=== PATIENT | female | born 1980 | race Caucasian/White ===

== ENCOUNTER 2018-06-17 21:24 | Emergency (ER) | payer OTHER, SELFPAY ==
--- NOTE | 2018-06-17 21:40 | DI.RAD.S_ITS ---
PROCEDURE: XR FINGER LT MIN 2V INDICATIONS: left distal middle finger injury TECHNIQUE: AP hand, 2 views of the third finger(s) acquired. COMPARISON: None. FINDINGS: Bones: No fractures or dislocations. No suspicious bony lesions. Soft tissues: No suspicious soft tissue calcifications. IMPRESSION: No gross acute pedicular fracture or dislocation. Dictated by: Michael Martin M.D. on 06/18/2018 at 8:22 Approved by: Michael Martin M.D. on 06/18/2018 at 8:23
--- NOTE | 2018-06-17 21:41 | ED.WOUNDLAC ---
HPI - Wound/Laceration General Chief Complaint: Wound/Laceration Stated Complaint: LACERATION OF MIDDLE FINGER LEFT HAND Time Seen by Provider: 06/17/18 21:35 Source: patient Mode of arrival: ambulatory Limitations: no limitations History of Present Illness HPI narrative: Patient is a 37-year-old female here for evaluation of injury to her left middle finger. She states it occurred just prior to arrival. She states she got it caught in a vacuum apparatus cleaner at home. Has pain at the tip of her finger. Related Data Previous Rx's Medication Instructions Recorded bupropion HCl [Wellbutrin XL] 300 mg PO QDAY #90 tab 11/11/17 lisdexamfetamine 60 mg capsule 60 mg PO DAILY #30 cap 03/03/18 lisdexamfetamine 60 mg capsule 60 mg PO DAILY #30 cap 03/06/18 lisdexamfetamine 60 mg capsule 60 mg PO DAILY #30 cap 03/06/18 Allergies Allergy/AdvReac Type Severity Reaction Status Date / Time No Known Allergies Allergy Uncoded 03/03/18 10:16 Review of Systems Musculoskeletal Comments: Left middle finger pain Integumentary/Breasts Comments: bleeding from the tip of the left middle finger Neurologic Comments: no numbness or tingling left middle finger [facility] Medical History Ankle pain (Chronic) Depression (Chronic 2010) Foot pain (Chronic) History of heavy periods (Chronic) Chlamydia (Resolved 2013) HPV (human papilloma virus) infection (Resolved 2013) Surgical History Anesthesia (Resolved) History of gynecologic surgery (Resolved 05/2001) Status post cholecystectomy (Resolved 10/24/06) Family History Grandfather Cancer Diabetes mellitus Brain tumor Mother Age: 71 Diabetes mellitus Grandfather Stroke Diabetes mellitus Pneumonia Brother Liver failure Kidney failure Alcoholism Father No problems noted. Grandmother MVA (motor vehicle accident) Grandmother Alzheimer's disease Other Uterine cancer Social History Smoking Status: Never smoker Exam Initial Vital Signs Initial Vital Signs: Vital Signs Temperature 98.7 F 06/17/18 21:43 Pulse Rate 89 06/17/18 21:43 Respiratory Rate 14 06/17/18 21:43 Blood Pressure 131/78 06/17/18 21:43 Pulse Oximetry 94 06/17/18 21:43 Const General: cooperative, healthy appearing, comfortable, well developed, well groomed and No acute distress Orientation: alert, awake and oriented x3 HENMT Head: normal to inspection and normocephalic Resp Effort & Inspection: normal respiratory effort Cardio Pulses: radial pulses present on the left Skin Other: abrasion to the dorsal aspect of the left middle finger over the PIP joint. Neuro Other: Sensation intact to light touch left middle finger distal Extrem Other: pain with flexion extension of the left he IP joint. Left PIP and MCP joint unremarkable. Psych Appearance: grossly normal and well kempt Course Orders Ordered: ED Orders 06/17/18 21:40 XR finger LT min 2V Stat Vital Signs - 8 hr 06/17/18 21:43 Temperature 98.7 F Pulse Rate 89 Respiratory Rate 14 Blood Pressure 131/78 Pulse Oximetry 94 MDM - Wound/Laceration Imaging Data x-ray finger: Attestation: I personally reviewed and interpreted this imaging study as follows: My impression: no fracture, no dislocation MDM Narrative Medical decision making narrative: no fractures noted on the x-ray. Patient does have abrasions over the tips of the finger. It is pretty swollen. No indication for suturing. Was placed in a aluminum splint for comfort. Patient was given care instructions. She was given return precautions. She expressed understanding and agreement with plan. Discharge Plan Departure Patient Disposition: Home Clinical Impression: Finger injury, Abrasion Instructions: How To Perform RICE (Rest, Ice, Compress, Elevate) Activity Restrictions/Additional Instructions: you can use the splint as needed for comfort. You can remove it to shower and to wash her hands. You can wash her hand like normal using soap and water. I would recommend icing your finger. Return to the emergency department for any new or worsening symptoms Prescriptions: No Action bupropion HCl [Wellbutrin XL] 300 MG tablet extended release 24 hr 300 mg PO QDAY Qty: 90 RF: 1 lisdexamfetamine [Vyvanse] 60 mg capsule 60 mg PO DAILY Qty: 30 RF: 0 lisdexamfetamine [Vyvanse] 60 mg capsule 60 mg PO DAILY Qty: 30 RF: 0 lisdexamfetamine 60 mg capsule 60 mg PO DAILY Qty: 30 RF: 0
[2018-06-17 21:43] VITALS: BP 131/78; PULSE 89; RESP 14; TEMP 37.1; O2SAT 94
[2018-06-17 22:55] VITALS: BP 130/72; PULSE 89; RESP 12; TEMP 36.8; O2SAT 98
--- NOTE | 2018-06-17 22:56 | PC.NURSE ---
Xeroform and finger splint applied prior to D/C.
== END 2018-06-17 22:55 | disposition home or self-care (01) ==
PROVIDERS: Emergency Provider Emergency Medicine; Family Provider Family Medicine; PCP Family Medicine
DX: S60.413A Abrasion of left middle finger, initial encounter (principal); W23.0XXA Caught, crushed, jammed, or pinched between moving objects, initial encounter
CPT/HCPCS: 73140; 99283

== ENCOUNTER → 2019-08-17 09:38 | Outpatient (CLI) | payer OTHER, MEDICAID, SELFPAY ==
[2019-08-17 10:32] LABS: Add Manual Diff / Slide Review NO; Basophils Absolute Auto 100 /uL (0-100); Basophils Percent Auto 0.7 % (0-2); Eosinophils Absolute Auto 100 /uL (0-450); Eosinophils Percent Auto 1.1 % (2-4); Hematocrit 33.4 % (36-46); Hemoglobin 10.5 g/dL (12.0-16.0); Lymphocytes Absolute Auto 1300 /uL (1100-4500); Lymphocytes Percent Auto 19.1 % (25-40); Mean Corpuscular HGB Conc 31.3 % (30-36); Mean Corpuscular Hemoglobin 23.2 PG (26-34); Mean Corpuscular Volume 73.9 fL (80-100); Monocytes Absolute Auto 600 /uL (0-900); Monocytes Percent Auto 8.3 % (3-14); Neutrophils Absolute Auto 5000 /uL (1500-7000); Neutrophils Percent Auto 70.8 % (50-75); Platelet Count 236 X10^3/uL (150-400); Red Blood Cell Count 4.52 X10^6/uL (4.0-5.2); Red Cell Distribution Width 17.2 % (11.6-14.8)
[2019-08-17 10:49] LABS: Alanine Aminotransferase 12 IU/L (<35); Albumin Globulin Ratio 1.8 (1.0-2.8); Alkaline Phosphatase 46 U/L (38-126); Aspartate Aminotransferase 19 IU/L (14-36); BUN Creatinine Ratio 18.6 (6-22); Bilirubin Total 0.4 mg/dL (0.2-1.3); Blood Urea Nitrogen 13 mg/dL (7-17); Calcium 9.2 mg/dL (8.4-10.2); Carbon Dioxide 27 mmol/L (22-32); Chloride 106 mmol/L (98-107); Cholesterol 190 mg/dL (140-199); Estimated Glomerular Filt Rate > 60.0 mL/min (>60); Globulin 2.2 g/dL (1.7-4.1); Glucose 95 mg/dL (70-100); HDL Cholesterol 79 mg/dL (40-60); HEMOLYSIS < 15 (0-50); LDL Cholesterol Calculated 94 mg/dL (<100); Potassium 4.4 mmol/L (3.4-5.1); Sodium 139 mmol/L (137-145); Total Protein 6.2 g/dL (6.3-8.2); Triglycerides 84 mg/dL (35-150)
[2019-08-17 11:16] LABS: Thyroid Stimulating Hormone 0.78 uIU/mL (0.47-4.68)
[2019-08-17 15:37] LABS: HEMOLYSIS < 15 (0-50); Iron 31 ug/dL (37-170)
[2019-08-17 15:48] LABS: Percent Iron Saturation 7 % (15-50); Total Iron Binding Capacity 414 ug/dL (265-497); Transferrin 358 mg/dL (206-381)
[2019-08-17 16:14] LABS: Ferritin 4.3 ng/mL (6.27-137)
== END ==
PROVIDERS: PCP Family Medicine; Visit Provider Family Medicine
DX: E78.5 Hyperlipidemia, unspecified (principal); R53.83 Other fatigue; D64.9 Anemia, unspecified; Z82.49 Family history of ischemic heart disease and other diseases of the circulatory system; N92.0 Excessive and frequent menstruation with regular cycle
CPT/HCPCS: 36415; 80053; 80061; 82728; 83540; 83550; 84443; 85025

== ENCOUNTER → 2019-10-02 16:37 | Outpatient (CLI) | payer OTHER, MEDICAID, SELFPAY ==
[2019-10-02 17:33] LABS: Add Manual Diff / Slide Review NO; Basophils Absolute Auto 0 /uL (0-100); Basophils Percent Auto 0.5 % (0-2); Eosinophils Absolute Auto 100 /uL (0-450); Eosinophils Percent Auto 1.4 % (2-4); Hemoglobin 11.8 g/dL (12.0-16.0); Lymphocytes Absolute Auto 2000 /uL (1100-4500); Lymphocytes Percent Auto 27.3 % (25-40); Mean Corpuscular HGB Conc 31.9 % (30-36); Mean Corpuscular Hemoglobin 25.5 PG (26-34); Monocytes Absolute Auto 500 /uL (0-900); Neutrophils Absolute Auto 4700 /uL (1500-7000); Neutrophils Percent Auto 63.8 % (50-75); Platelet Count 201 X10^3/uL (150-400); Red Blood Cell Count 4.63 X10^6/uL (4.0-5.2); Red Cell Distribution Width 21.7 % (11.6-14.8); White Blood Cell Count 7.3 X10^3/uL (4.5-11.0)
[2019-10-02 18:02] LABS: HEMOLYSIS < 15 (0-50); Iron 202 ug/dL (37-170)
[2019-10-02 18:12] LABS: Percent Iron Saturation 56 % (15-50); Total Iron Binding Capacity 358 ug/dL (265-497); Transferrin 311 mg/dL (206-381)
[2019-10-02 18:33] LABS: Ferritin 8 ng/mL (6-137)
[2019-10-02 19:31] LABS: Anisocytosis 1+; Poikilocytosis 1+
== END ==
PROVIDERS: PCP Family Medicine; Referring Provider Family Medicine; Visit Provider Family Medicine
DX: D50.9 Iron deficiency anemia, unspecified (principal); N92.0 Excessive and frequent menstruation with regular cycle
CPT/HCPCS: 36415; 82728; 83540; 83550; 85025

== ENCOUNTER → 2020-01-04 09:17 | Outpatient (CLI) | payer OTHER, MEDICAID, SELFPAY ==
[2020-01-04 10:04] LABS: Add Manual Diff / Slide Review NO; Basophils Absolute Auto 0 /uL (0-100); Basophils Percent Auto 0.7 % (0-2); Eosinophils Absolute Auto 100 /uL (0-450); Eosinophils Percent Auto 1.3 % (2-4); Hematocrit 36.6 % (36-46); Hemoglobin 12.1 g/dL (12.0-16.0); Lymphocytes Absolute Auto 1600 /uL (1100-4500); Lymphocytes Percent Auto 28.2 % (25-40); Mean Corpuscular Hemoglobin 26.9 PG (26-34); Mean Corpuscular Volume 81.5 fL (80-100); Monocytes Absolute Auto 500 /uL (0-900); Monocytes Percent Auto 9.2 % (3-14); Neutrophils Absolute Auto 3400 /uL (1500-7000); Neutrophils Percent Auto 60.6 % (50-75); Platelet Count 224 X10^3/uL (150-400); Red Blood Cell Count 4.49 X10^6/uL (4.0-5.2); Red Cell Distribution Width 15.3 % (11.6-14.8); White Blood Cell Count 5.7 X10^3/uL (4.5-11.0)
[2020-01-04 10:38] LABS: HEMOLYSIS < 15 (0-50); Iron 51 ug/dL (37-170)
[2020-01-04 10:49] LABS: Percent Iron Saturation 13 % (15-50); Total Iron Binding Capacity 399 ug/dL (265-497); Transferrin 328 mg/dL (206-381)
[2020-01-04 11:13] LABS: Ferritin 5 ng/mL (6-137)
== END ==
PROVIDERS: PCP Family Medicine; Referring Provider Family Medicine; Visit Provider Family Medicine
DX: D50.0 Iron deficiency anemia secondary to blood loss (chronic) (principal)
CPT/HCPCS: 36415; 82728; 83540; 83550; 85025

== ENCOUNTER → 2020-01-14 09:38 | Outpatient (CLI) | payer OTHER, MEDICAID, SELFPAY ==
--- NOTE | 2020-01-14 09:40 | DI.US.S_ITS ---
PROCEDURE: US PELVIC COMPLETE INDICATIONS: HEAVY PERIODS TECHNIQUE: Real-time scanning was performed of the pelvic organs, with image documentation. Additional endovaginal scanning was necessary due to incomplete visualization of the adnexal and endometrial structures by transabdominal scanning. COMPARISON: [facility], , PELVIC COMPLETE, 02/26/2015, 13:19. FINDINGS: Transabdominal scanning: Limited scanning through the kidneys shows no hydronephrosis. No pathologic free abdominal or pelvic fluid. Endovaginal scanning: Uterus: Uterus is normal in size at 7.8 x 6.4 x 8.2 cm. The endometrium measures 1.3 mm in combined thickness. Ovaries: 19 mm dominant right follicular cyst; otherwise normal ovaries measuring 2.9 x 1.8 x 2.3 cm on the right and 2.8 x 1.7 x 2.2 cm and the left. No adnexal masses seen. IMPRESSION: No source for menorrhagia identified. Dictated by: Chan SCHMID Interpreted: Michael Martin MD on 01/14/2020 at 10:43 Approved by: Michael Martin M.D. on 01/14/2020 at 11:56
== END ==
PROVIDERS: PCP Family Medicine; Referring Provider Family Medicine; Visit Provider Family Medicine
DX: D50.0 Iron deficiency anemia secondary to blood loss (chronic) (principal); N92.0 Excessive and frequent menstruation with regular cycle; N83.01 Follicular cyst of right ovary
CPT/HCPCS: 76830; 76856

== ENCOUNTER 2021-05-25 14:11 | Emergency (ER) | payer OTHER, MEDICAID, SELFPAY ==
[2021-05-25 14:18] VITALS: BP 139/70; PULSE 90; RESP 16; TEMP 36.6; O2SAT 99; BMI 26.6
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
[2021-05-25] MEDS: CYCLOBENZAPRINE 10 MG TABLET PO (15:30)
[2021-05-25] MEDS: KETOROLAC 30 MG/ML VIAL IM (15:30)
[2021-05-25] MEDS: LIDOCAINE PATCH 1 EACH ADH..PATCH TOP (15:30)
--- NOTE | 2021-05-25 16:32 | DI.MRI.S_ITS ---
PROCEDURE: MR LUMBAR SPINE WO CON INDICATIONS: Lower back pain TECHNIQUE: Noncontrast sagittal T1 spin echo and T2 fast echo, sagittal STIR, axial T1 and T2 fast spin echo through the lumbar spine. In cases with scoliosis, additional coronal T2 fast spin echo may be performed. COMPARISON: None. FINDINGS: Image quality: Excellent. Alignment and Curvature: There is normal bony alignment. Bone Marrow: Marrow is of normal overall signal. No acute vertebral body compression fractures. Spinal Cord: Conus medullaris terminates at the L1 level. Visualized cord demonstrates normal signal and size. Paraspinous Soft Tissues: No paravertebral masses. T12-L1: Normal appearance. L1-L2: Normal appearance. L2-L3: Normal appearance. L3-L4: Normal appearance. L4-L5: Normal appearance. L5-S1: Large left subarticular focal protrusion/extrusion with inferior migration fills the left lateral recess displacing the descending S1 nerve root. No central or foraminal stenosis. IMPRESSION: 1. Large subarticular left L5-S1 disc protrusion/2 screws in with inferior migration effaces the left lateral recess and displaces the descending S1 nerve root Approved by: Garrick Stafford M.D. on 05/25/2021 at 17:48
[2021-05-25] MEDS: MORPHINE 4 MG/ML INJ IM (16:46)
[2021-05-25] MEDS: ONDANSETRON 4 MG ODT PO (16:46)
[2021-05-25 16:56] VITALS: O2SAT 98
--- NOTE | 2021-05-25 16:56 | PC.NURSE ---
Pt states she has h/o issues with L4L5. Given first round of meds per MAR without relief. pt resting prone in position of comfort. states unable to turn on back. JAGDEEP Villarreal made aware. MRI ordered and checklist completed. given IM morphine 4mg, ODT zofran, and crackers to eat. Pt resting until MRI at 1800. Mother at bedside.
[2021-05-25 16:57] VITALS: BP 101/67; PULSE 94; O2SAT 98
[2021-05-25 17:00] VITALS: PULSE 82; RESP 16; O2SAT 97
[2021-05-25 17:30] VITALS: PULSE 76; O2SAT 100
--- NOTE | 2021-05-25 18:20 | PC.NURSE ---
Pt returned from MRI. lying on back with L leg slightly elevated on pillow. states sleepy and appears more comfortable. states her pain has decreased and quite tolerable.
== END 2021-05-25 19:28 | disposition home or self-care (01) ==
PROVIDERS: Emergency Provider Student in an Organized Health Care Education/Training Program; PCP Family Medicine
DX: M54.42 Lumbago with sciatica, left side (principal)
CPT/HCPCS: 72148; 96372; 99283; 99284; J1885; J2270

== ENCOUNTER → 2021-06-08 08:35 | Outpatient (CLI) | payer OTHER, MEDICAID, SELFPAY ==
[2021-06-08 16:35] LABS: COVID19 -Nasal RAPID Negative (Negative)
== END ==
PROVIDERS: PCP Family Medicine; Visit Provider Physical Medicine & Rehabilitation
DX: Z20.822 Contact with and (suspected) exposure to COVID-19 (principal)
CPT/HCPCS: 87635; C9803

== ENCOUNTER 2021-06-09 14:15 | Outpatient (CLI) | payer OTHER, MEDICAID, SELFPAY ==
[2021-06-09] VITALS (8 sets, daily range): BP systolic 113–137; BP diastolic 77–82; PULSE 69–93; RESP 9–20; TEMP 37.4; O2SAT 98–100
--- NOTE | 2021-06-09 14:17 | DI.RAD.S_ITS ---
PROCEDURE: PAIN L INTERLAMINAR/CAUDAL INJ INDICATIONS: SPONDYLOSIS COMPARISON: None. FINDINGS: Fluoroscopic spot filming was performed to verify placement of spinal needles at the left L5-S1 interlaminar level(s), as labeled on the films. Appropriate location(s) of the needle tip(s) was confirmed by injection of iodinated contrast. IMPRESSION: Access needle in the left L5-S1 interlaminar space. Dictated by: Dorothy Pearl MD, PhD on 06/09/2021 at 15:32 Approved by: Dorothy Pearl MD, PhD on 06/09/2021 at 15:33
[2021-06-09] MEDS: MIDAZOLAM 5 MG/5 ML VIAL IV (15:04)
[2021-06-09] MEDS: fentaNYL 100 MCG/2 ML INJ 50 MCG IV (15:04)
[2021-06-09] MEDS: BUPIVACAINE 0.25% (PF) VIAL 2 ML INJ (15:11)
[2021-06-09] MEDS: IOPAMIDOL 15 ML VIAL 3 ML INJ (15:11)
[2021-06-09] MEDS: DEXAMETHASONE 10 MG/ML VIAL 20 MG INJ (15:12)
[2021-06-09] MEDS: BETAMETHASONE 30 MG/5 ML MDV 12 MG INJ (15:12)
--- NOTE | 2021-06-09 15:18 | P.PCN_ITS ---
Date/Time/Diagnoses Date of procedure: 06/09/21 Time of procedure: 15:19 Pre-procedure diagnosis: 1. HNP WITH RADICULAR FEATURES, 2. MULTILEVEL CENTRAL STENOSIS, Post-procedure diagnosis: same Procedure Notes Procedure: 1. FLUOROSCOPICALLY GUIDED CONTRAST CONTROLLED INTERLAMINAR EPIDURAL STEROID INJECTION - L5/S1 Indications: Diane is referred by Dr. Avery for treatment of Bilateral Foraminal Stenosis L>R LE symptoms. Physician: Mohan Tavarez Total Fluoroscopy time (seconds): 6 Total sedation minutes: 9 Complications: none Procedure in detail & Post-procedure care: FINDINGS Multilevel Central Spinal Stenosis with Nerve Root Compression DESCRIPTION OF PROCEDURE Fluoroscopically guided, contrast-controlled L5/S1 translaminar epidural steroid injection. Following review of allergy and review of potential side effects and complications, including, but not necessarily limited to, infection, allergic reaction, local tissue breakdown, temporary as well as permanent nerve injury, paralysis, stroke and possible , the patient indicated that the patient understood and agreed to proceed. An informed consent document was signed by the patient, witnessed by a nurse, and placed in the patient's chart. Additionally, other treatment options including modalities, medications, and physical therapy were reviewed with the patient. After review of previous anaesthesic history and IV conscious sedation the patient was deemed safe to proceed with today?s procedure with IV conscious sedation as ASA class II designation. Safety time-out was performed to confirm p atient ID, procedure to be performed and site of procedure. IV sedation was accomplished with a combination of 2mg of Versed and 50mcg of Fentanyl administered by the RN after DO order, titrated to patient comfort during the course of the procedure while the patient remained responsive to all verbal commands. In the prone position, following sterile prep and drape of the lumbar region, the L5/S1 translaminar space was identified fluoroscopically. The skin was anesthetized via a 25-gauge, 1.5-inch needle with 1% lidocaine solution. At this point, a 22-gauge short bevel spinal needle was atraumatically introduced and advanced under fluoroscopic guidance into the region of the L5/S1 translaminar space. Depth was confirmed on lateral view. Radiological data, including multiple fluoroscopic views of the lumbar spine, reveal a spinal needle at the L5/S1 translaminar space. Lateral views then show placement of the needle in the epidural space. Subsequent views show contrast material flowing superiorly and inferiorly in the epidural space. No vascular or intrathecal uptake is observed. At this point, using loss of resistance technique with saline and air, the epidural space was entered. This was confirmed following negative aspiration with injection of approximately 1.5cc of Isovue 200, showing excellent epidural flow without vascular or intrathecal uptake. At this point, 1 cc of 1% lidocaine solution combined with 4cc or 20mg of dexamethasone and 12mg of betamethasone was injected without incident. The patent tolerated the procedure without signs of symptoms of complications prior to transfer to the recovery area for further monitoring. The patient was then transferred to the recovery area where they were observed for an appropriate period of time after the injection. The patient reported a VAS score of 6 prior to the procedure and a post-procedure VAS of 0. POST OP INSTRUCTIONS The patient was provided a Pain Log to continue to record their response to the target-specific procedure prior to follow-up visit with their referring physician. Additionally, specific post-injection care instructions and a contact number to our office were provided if concerns arise regarding possible complications associated with the procedure are suspected.
== END 2021-06-09 15:40 | disposition home or self-care (01) ==
LOC: RAD 14:16
PROVIDERS: PCP Family Medicine; Referring Provider Physical Medicine & Rehabilitation; Visit Provider Physical Medicine & Rehabilitation
DX: M51.17 Intervertebral disc disorders with radiculopathy, lumbosacral region (principal); M48.07 Spinal stenosis, lumbosacral region
CPT/HCPCS: 62323; J0702; J1100; J2250; J3010

== ENCOUNTER → 2021-06-29 13:33 | Outpatient (CLI) | payer OTHER, MEDICAID, SELFPAY ==
[2021-06-29 16:38] LABS: COVID19 -Nasal RAPID Negative (Negative)
== END ==
PROVIDERS: PCP Family Medicine; Referring Provider Physical Medicine & Rehabilitation; Visit Provider Physical Medicine & Rehabilitation
DX: Z20.822 Contact with and (suspected) exposure to COVID-19 (principal)
CPT/HCPCS: 87635; C9803

== ENCOUNTER 2021-06-30 14:35 | Outpatient (CLI) | payer OTHER, MEDICAID, SELFPAY ==
[2021-06-30] VITALS (7 sets, daily range): BP systolic 105–131; BP diastolic 60–94; PULSE 63–82; RESP 8–22; TEMP 36.8; O2SAT 97–100
--- NOTE | 2021-06-30 14:36 | DI.RAD.S_ITS ---
PROCEDURE: PAIN L/S TRANSFORAMINAL INJECT INDICATIONS: SPONDYLOSIS COMPARISON: None. FINDINGS: Fluoroscopic spot filming was performed to verify placement of spinal needles at the left L5 nerve root level(s), as labeled on the films. Appropriate location(s) of the needle tip(s) was confirmed by injection of iodinated contrast. IMPRESSION: Imaging utilized for fluoroscopic guided lumbar nerve root block. Dictated by: Brandon Harris M.D. on 06/30/2021 at 17:02 Approved by: Brandon Harris M.D. on 06/30/2021 at 17:03
[2021-06-30] MEDS: fentaNYL 100 MCG/2 ML INJ 50 MCG IV (15:21)
[2021-06-30] MEDS: MIDAZOLAM 5 MG/5 ML VIAL IV (15:21)
[2021-06-30] MEDS: BUPIVACAINE 0.25% (PF) VIAL 30 ML (15:26)
[2021-06-30] MEDS: IOPAMIDOL 15 ML VIAL 3 ML INJ (15:26)
[2021-06-30] MEDS: DEXAMETHASONE 10 MG/ML VIAL 20 MG INJ (15:27)
[2021-06-30] MEDS: methylPREDNISolone acetate 80 MG/ML VIAL INJ (15:27)
--- NOTE | 2021-06-30 15:39 | P.PCN_ITS ---
Date/Time/Diagnoses Date of procedure: 06/30/21 Time of procedure: 15:39 Pre-procedure diagnosis: 1. FORAMINAL STENOSIS WITH LE SYMPTOMS Post-procedure diagnosis: same Procedure Notes Procedure: 1. FLUOROSCOPICALLY GUIDED CONTRAST CONTROLLED TRANSFORAMINAL EPIDURAL STEROID INJECTION - Left L5/S1 Indications: Diane is referred by Dr. Avery for treatment of HNP with Left LE Symptoms Physician: Mohan Tavarez Total Fluoroscopy time (seconds): 16 Total sedation minutes: 11 Complications: none Procedure in detail & Post-procedure care: FINDINGS Foraminal Nerve Root Compression secondary to disc disease and facet hypertrophy DESCRIPTION OF PROCEDURE Following review of allergy and review of potential side effects and complications, including, but not necessarily limited to, infection, allergic reaction, local tissue breakdown, stroke, temporary or permanent nerve injury, paralysis, and possible , the patient indicated that the patient understood and agreed to proceed. An informed consent document was signed by the patient, witnessed by a nurse, and placed in the patient's chart. Additionally, other treatment options including medications, modalities, and physical therapy were reviewed with the patient. After review of previous anaesthesic history and IV conscious sedation the patient was deemed safe to proceed with today?s procedure with IV conscious chilo tion as ASA class II designation. Safety time-out was performed to confirm patient ID, procedure to be performed and site of procedure. IV sedation was accomplished with a combination of 3mg of Versed and 50mcg of Fentanyl was administered by the RN after DO order, titrated to patient comfort during the course of the procedure while the patient remained responsive to all verbal commands In the prone position following sterile prep and drape of the lumbar region, the left L5/S1 posterior neuroforamen was identified fluoroscopically. The skin was anesthetized via a 25-gauge 1.5-inch needle with 1% lidocaine solution. At this point, a 25-gauge 3.5-inch spinal needle was atraumatically introduced and advanced under fluoroscopic guidance through the posterior left L5/S1 neuroforamen to approximately the anterior aspect of the canal. Depth was confirmed on lateral view. Following negative aspiration, injection of approximately 1.5cc of Isovue 200 under live fluoroscopy in the AP view confirmed excellent flow along the nerve root, into the epidural space without vascular or intrathecal uptake observed. Radiological data, including multiple fluoroscopic views of the lumbosacral spine, reveal a spinal needle at the left L5/S1 posterior neuroforamen. Subsequent views show flow of contrast material flowing superiorly and inferiorly along the nerve root confirming epidural flow. Subsequently, a test dose of 1.5cc of 1% lidocaine solution was administered and patient was observed for two minutes for signs or symptoms of complications, including abdominal pain, shortness of breath, bilateral upper or lower extremity weakness, nausea and vomiting, prior to steroid injection. At this point, a total of 3cc or 20mg of dexamethasone and 80mg of depomedrol was injected without incident. The procedure tolerated the procedure well without signs or symptoms of complications prior to transfer to the recovery area continued monitoring without incident. The patient was then transferred to the recovery area where they were observed for an appropriate time after the injection. The patient reported a VAS score of 7 prior to the procedure and a post-procedure VAS of 0. POST OP INSTRUCTIONS The patient was provided a Pain Log to continue to record their response to the target-specific procedure prior to follow-up visit with their referring physician. Additionally, specific post-injection care instructions and a contact number to our office were provided if concerns arise regarding possible complications associated with the procedure are suspected.
== END 2021-06-30 16:04 | disposition home or self-care (01) ==
PROVIDERS: PCP Family Medicine; Referring Provider Physical Medicine & Rehabilitation; Visit Provider Physical Medicine & Rehabilitation
DX: M48.07 Spinal stenosis, lumbosacral region (principal); M51.17 Intervertebral disc disorders with radiculopathy, lumbosacral region
CPT/HCPCS: 64483; 99152; J1040; J1100; J2250; J3010

== ENCOUNTER → 2021-12-14 09:41 | Outpatient (CLI) | payer OTHER, MEDICAID, SELFPAY ==
[2021-12-14 12:00] LABS: COVID19 -Nasal RAPID Negative (Negative)
== END ==
PROVIDERS: PCP Family Medicine; Visit Provider Physical Medicine & Rehabilitation
DX: Z20.822 Contact with and (suspected) exposure to COVID-19 (principal)
CPT/HCPCS: 87635; C9803

== ENCOUNTER 2021-12-15 12:24 | Outpatient (CLI) | payer OTHER, MEDICAID, SELFPAY ==
[2021-12-15] VITALS (9 sets, daily range): BP systolic 114–140; BP diastolic 60–90; PULSE 73–101; RESP 10–20; TEMP 36.6; O2SAT 99–100
--- NOTE | 2021-12-15 12:25 | DI.RAD.S_ITS ---
PROCEDURE: PAIN L/S TRANSFORAMINAL INJECT INDICATIONS: SPONDYLOSIS COMPARISON: [facility], , PAIN L/S TRANSFORAMINAL INJECT, 06/30/2021, 16:22. FINDINGS: Fluoroscopic spot filming was performed to verify placement of a spinal needle at the L5-S1 level, as labeled on the films. Appropriate location of the needle tip was confirmed by injection of iodinated contrast. IMPRESSION: No significant intraprocedural abnormality. Dictated by: Diego Jasso M.D. on 12/15/2021 at 16:21 Approved by: Diego Jasso M.D. on 12/15/2021 at 16:21
[2021-12-15] MEDS: MIDAZOLAM 2 MG/2 ML VIAL IV (13:21)
[2021-12-15] MEDS: DEXAMETHASONE 10 MG/ML VIAL 20 MG INJ (13:26)
[2021-12-15] MEDS: BUPIVACAINE 0.25% (PF) VIAL 2 ML INJ (13:26)
[2021-12-15] MEDS: methylPREDNISolone acetate 80 MG/ML VIAL INJ (13:26)
[2021-12-15] MEDS: IOPAMIDOL 15 ML VIAL 3 ML INJ (13:26)
--- NOTE | 2021-12-15 13:39 | P.PCN_ITS ---
Date/Time/Diagnoses Date of procedure: 12/15/21 Time of procedure: 13:40 Pre-procedure diagnosis: 1. FORAMINAL STENOSIS WITH LE SYMPTOMS Post-procedure diagnosis: same Procedure Notes Procedure: 1. FLUOROSCOPICALLY GUIDED CONTRAST CONTROLLED TRANSFORAMINAL EPIDURAL STEROID INJECTION - Left L5/S1 Indications: Diane is referred by Dr. Robison for treatment of Foraminal Stenosis with Left LE Symptoms Physician: Mohan Tavarez Total Fluoroscopy time (seconds): 12 Total sedation minutes: 14 Complications: none Procedure in detail & Post-procedure care: FINDINGS Foraminal Nerve Root Compression secondary to disc disease and facet hypertrophy DESCRIPTION OF PROCEDURE Following review of allergy and review of potential side effects and complications, including, but not necessarily limited to, infection, allergic reaction, local tissue breakdown, stroke, temporary or permanent nerve injury, paralysis, and possible , the patient indicated that the patient understood and agreed to proceed. An informed consent document was signed by the patient, witnessed by a nurse, and placed in the patient's chart. Additionally, other treatment options including medications, modalities, and physical therapy were reviewed with the patient. After review of previous anaesthesic history and IV conscious sedation the patient was deemed safe to proceed with today?s procedure with IV conscious sedation as ASA class II designation. Safety time-out was performed to confirm patient ID, procedure to be performed and site of procedure. IV sedation was accomplished with a combination of 2mg of Versed was administered by the RN after DO order, titrated to patient comfort during the course of the procedure while the patient remained responsive to all verbal commands In the prone position following sterile prep and drape of the lumbar region, the Left L5/S1 posterior neuroforamen was identified fluoroscopically. The skin was anesthetized via a 25-gauge 1.5-inch needle with 1% lidocaine solution. At this point, a 25-gauge 3.5-inch spinal needle was atraumatically introduced and advanced under fluoroscopic guidance through the posterior Left L5/S1 neuroforamen to approximately the anterior aspect of the canal. Depth was confirmed on lateral view. Following negative aspiration, injection of approximately 1.5 cc of Isovue 200 under live fluoroscopy in the AP view confir med excellent flow along the nerve root, into the epidural space without vascular or intrathecal uptake observed Radiological data, including multiple fluoroscopic views of the lumbosacral spine, reveal a spinal needle at the Left L5/S1 posterior neuroforamen. Subsequent views show flow of contrast material flowing superiorly and inferiorly along the nerve root confirming epidural flow. Subsequently, a test dose of 1.5cc of 1% lidocaine solution was administered and patient was observed for two minutes for signs or symptoms of complications, including abdominal pain, shortness of breath, bilateral upper or lower extremity weakness, nausea and vomiting, prior to steroid injection. At this point, a total of 3cc or 20mg of dexamethasone and 80mg of depomedrol was injected without incident. The procedure tolerated the procedure well without signs or symptoms of complications prior to transfer to the recovery area continued monitoring without incident. The patient was then transferred to the recovery area where they were observed for an appropriate time after the injection. The patient reported a VAS score of 7 prior to the procedure and a post-procedure VAS of 0. POST OP INSTRUCTIONS The patient was provided a Pain Log to continue to record their response to the target-specific procedure prior to follow-up visit with their referring physic jose guadalupe. Additionally, specific post-injection care instructions and a contact number to our office were provided if concerns arise regarding possible complications associated with the procedure are suspected.
--- NOTE | 2021-12-15 14:48 | PC.NURSE ---
1340 - patient experiencing left leg weakness. will reassess 1350 - patient stood up. left leg weakness continuing, but improving. will reassess 1410 - patient stood up without issue, able to take steps forward and back. patient has help at home if needed. ok to discharge.
== END 2021-12-15 14:12 | disposition home or self-care (01) ==
PROVIDERS: PCP Family Medicine; Referring Provider Physical Medicine & Rehabilitation; Visit Provider Physical Medicine & Rehabilitation
DX: M48.07 Spinal stenosis, lumbosacral region (principal); M51.17 Intervertebral disc disorders with radiculopathy, lumbosacral region
CPT/HCPCS: 64483; 99152; J1040; J1100; J2250

== ENCOUNTER → 2021-12-18 18:53 | Outpatient (CLI) | payer OTHER, MEDICAID, SELFPAY ==
--- NOTE | 2021-12-18 18:55 | DI.MRI.S_ITS ---
PROCEDURE: MR LUMBAR SPINE WO CON INDICATIONS: Acute worsening of lumbar radiculopathy TECHNIQUE: Noncontrast sagittal T1 spin echo and T2 fast echo, sagittal STIR, and T2 fast spin echo through the lumbar spine. In cases with scoliosis, additional coronal T2 fast spin echo may be performed. COMPARISON: [facility], MR, MR LUMBAR SPINE WO CON, 05/25/2021, 17:52. FINDINGS: Image quality: Excellent. Alignment and Curvature: There is normal bony alignment. Bone Marrow: Marrow is of normal overall signal. No acute vertebral body compression fractures. Spinal Cord: Conus medullaris terminates at the L1 level. Visualized cord demonstrates normal signal and size. Paraspinous Soft Tissues: No paravertebral masses. T12-L1: Normal appearance. L1-L2: Normal appearance. L2-L3: Normal appearance. L3-L4: Normal appearance. L4-L5: Normal appearance. L5-S1: There is disc desiccation with mild loss of disc height and a broad-based posterior disc bulge with extruded disc fragment eccentric to the left redemonstrated. This demonstrates subarticular extension into the left lateral recess with displacement of the descending left S1 nerve root. No spinal canal narrowing. There is minimal left neural foraminal narrowing. Findings overall appear similar to the prior study. IMPRESSION: 1. Extruded disc fragment eccentric to the left at L5-S1 with subarticular extension into the lateral recess with displacement of the descending S1 nerve root. Findings are similar to the prior study. Dictated by: Braden Barragan M.D. on 12/18/2021 at 20:19 Approved by: Braden Barragan M.D. on 12/18/2021 at 20:27
== END ==
PROVIDERS: PCP Family Medicine; Referring Provider Physical Medicine & Rehabilitation; Visit Provider Physical Medicine & Rehabilitation
DX: M51.17 Intervertebral disc disorders with radiculopathy, lumbosacral region (principal)
CPT/HCPCS: 72148

== ENCOUNTER → 2022-12-28 09:24 | Outpatient (CLI) | payer OTHER, MEDICAID, SELFPAY ==
--- NOTE | 2022-12-28 09:26 | DI.MG.S_ITS ---
BILATERAL DIGITAL DIAGNOSTIC MAMMOGRAM 3D/2D: 12/28/2022 CLINICAL: Baseline. Right breast lump. No prior exams were available for comparison. There are scattered areas of fibroglandular density in both breasts (category b / 25%-50% glandular tissue). There is a benign 9 mm lymph node in the right breast at 8 o'clock posterior depth. This correlates as an incidental finding. No other significant masses, calcifications, or other findings are seen in either breast. Specifically, no finding to correspond to the patient's palpable abnormality. IMPRESSION: INCOMPLETE: NEEDS ADDITIONAL IMAGING EVALUATION There is no abnormality seen in the right breast to correspond with the palpable abnormality at 10 o'clock. Ultrasound is recommended for full evaluation of this area. This was performed immediately following this exam. Mammograms are otherwise normal. Based on the Tyrer Cuzick model (a risk assessment model) the patient's lifetime risk is 8.2% and her 10 year risk is 1.4%. According to the ACR, ACS, and NCCN guidelines, an annual breast MRI exam along with mammogram is recommended if the patient's lifetime risk is 20% or greater. This exam was interpreted at Station ID: [id number]. NOTE: For mammograms, a report in lay terms will be sent to the patient. Approximately 15% of breast malignancies will not be visualized mammographically. In the management of a palpable breast mass, a negative mammogram must not discourage biopsy of a clinically suspicious lesion. Electronically Signed By: Chacha cid/:12/28/2022 10:13:07 ACR BI-RADS Category 0: Incomplete [id number]
--- NOTE | 2022-12-28 09:26 | DI.US.S_ITS ---
ULTRASOUND OF RIGHT BREAST: 12/28/2022 CLINICAL: Palpable right breast lump. Comparison is made to exam dated: 12/28/2022 mammogram - [facility]. Color flow ultrasound of the right breast was performed. Vidal scale images of the real-time examination were reviewed. No significant abnormalities were seen sonographically in the right breast. Specifically, no finding to correspond to the patient's palpable abnormality. IMPRESSION: NEGATIVE There is no sonographic correlate to the patient's palpable abnormality and no evidence of malignancy. A 1 year screening mammogram is recommended. Findings and recommendations were conveyed to the patient at time of exam. This exam was interpreted at Station ID: [id number]. Electronically Signed By: Chacha cid/:12/28/2022 10:35:47 letter sent: Normal Exam Ultrasound BI-RADS: 1 Negative
== END ==
PROVIDERS: PCP Family Medicine; Referring Provider Family Medicine; Visit Provider Family Medicine
DX: N63.10 Unspecified lump in the right breast, unspecified quadrant (principal); R92.2 Inconclusive mammogram
CPT/HCPCS: 76642; 77066; G0279

== ENCOUNTER → 2023-06-17 15:09 | Outpatient (CLI) | payer OTHER, MEDICAID, SELFPAY ==
[2023-06-17 17:09] LABS: Urine N gonorrhoeae NOT DETECTED
[2023-06-17 17:14] LABS: Urine Chlamydia NOT DETECTED
[2023-06-18 15:10] LABS: Candida species Negative (Negative); Gardnerella vaginalis Positive (Negative); Trichomoas vaginalis Negative (Negative)
== END ==
PROVIDERS: PCP Family Medicine; Visit Provider Family Medicine
DX: N93.9 Abnormal uterine and vaginal bleeding, unspecified (principal); R87.612 Low grade squamous intraepithelial lesion on cytologic smear of cervix (LGSIL); B97.7 Papillomavirus as the cause of diseases classified elsewhere; N76.0 Acute vaginitis; N89.8 Other specified noninflammatory disorders of vagina; Z20.2 Contact with and (suspected) exposure to infections with a predominantly sexual mode of transmission
CPT/HCPCS: 87480; 87491; 87510; 87591; 87660

== ENCOUNTER → 2023-09-19 16:23 | Outpatient (CLI) | payer OTHER, MEDICAID, SELFPAY ==
[2023-09-19 17:53] LABS: Add Manual Diff / Slide Review NO; Basophils Absolute Auto 0 /uL (0-100); Basophils Percent Auto 0.6 % (0-2); Eosinophils Absolute Auto 0 /uL (0-450); Eosinophils Percent Auto 0.5 % (2-4); Hematocrit 30.6 % (36-46); Hemoglobin 9.4 g/dL (12.0-16.0); Lymphocytes Absolute Auto 1400 /uL (1100-4500); Lymphocytes Percent Auto 17.2 % (25-40); Mean Corpuscular HGB Conc 30.7 % (30-36); Mean Corpuscular Hemoglobin 21.3 PG (26-34); Mean Corpuscular Volume 69.5 fL (80-100); Monocytes Absolute Auto 500 /uL (0-900); Monocytes Percent Auto 6.8 % (3-14); Neutrophils Absolute Auto 6100 /uL (1500-7000); Neutrophils Percent Auto 74.9 % (50-75); Platelet Count 297 X10^3/uL (150-400); Red Blood Cell Count 4.41 X10^6/uL (4.0-5.2); Red Cell Distribution Width 18.4 % (11.6-14.8); White Blood Cell Count 8.1 X10^3/uL (4.5-11.0)
[2023-09-19 18:06] LABS: Anisocytosis 1+; Microcytosis 1+
[2023-09-19 18:16] LABS: Alanine Aminotransferase 18 IU/L (<35); Albumin 4.2 g/dL (3.5-5.0); Albumin Globulin Ratio 1.6 (1.0-2.8); Alkaline Phosphatase 57 U/L (38-126); Aspartate Aminotransferase 22 IU/L (14-36); BUN Creatinine Ratio 12.3 (6-22); Bilirubin Total 0.5 mg/dL (0.2-1.3); Blood Urea Nitrogen 9 mg/dL (7-17); Calcium 9.4 mg/dL (8.4-10.2); Carbon Dioxide 26 mmol/L (22-32); Chloride 103 mmol/L (98-107); Estimated Glomerular Filt Rate > 60 mL/min (>60); Globulin 2.6 g/dL (1.7-4.1); Glucose 80 mg/dL (70-100); HEMOLYSIS < 15 (0-50); Potassium 3.6 mmol/L (3.4-5.1); Sodium 136 mmol/L (137-145); Total Protein 6.8 g/dL (6.3-8.2)
[2023-09-19 18:17] LABS: HEMOLYSIS < 15 (0-50); Iron 13 ug/dL (37-170)
[2023-09-19 18:25] LABS: Vitamin D 25 Hydroxy (D3) 85.3 ng/mL (30.0-100.0)
[2023-09-19 18:29] LABS: Percent Iron Saturation 3 % (15-50); Total Iron Binding Capacity 435 ug/dL (265-497); Transferrin 373 mg/dL (206-381)
[2023-09-19 18:30] LABS: Free T3, Triiodothyronine Free 4.51 pg/mL (2.77-5.27); Free T4, Direct Thyroxine 1.09 ng/dL (0.78-2.19)
[2023-09-19 18:42] LABS: Estradiol, Total 176.9 pg/mL
[2023-09-19 18:44] LABS: Thyroid Stimulating Hormone 0.849 uIU/mL (0.47-4.68)
[2023-09-19 18:45] LABS: Ferritin 4 ng/mL (6-137); Testosterone 132 ng/dL (5.71-77.0)
[2023-09-19 19:01] LABS: Vitamin B12 Reflex MMA if <400 903 pg/mL (239-931)
== END ==
LOC: LAB 16:24
PROVIDERS: PCP Family Medicine; Referring Provider Family Medicine; Visit Provider Family Medicine
DX: E66.9 Obesity, unspecified (principal); D64.9 Anemia, unspecified; D50.0 Iron deficiency anemia secondary to blood loss (chronic); E55.9 Vitamin D deficiency, unspecified; E03.9 Hypothyroidism, unspecified; Z79.890 Hormone replacement therapy
CPT/HCPCS: 36415; 80053; 82306; 82607; 82670; 82728; 83540; 83550; 84403; 84439; 84443; 84481; 85025

== ENCOUNTER → 2023-10-19 15:00 | Oncology outpatient (ONC) | payer OTHER, MEDICAID, SELFPAY ==
[2023-10-13] MEDS: ferumoxytoL 510 MG in SODIUM CHLORIDE 0.9% 100 ML 468 MG IV (15:20)
[2023-10-13 15:22] VITALS: BP 113/57; PULSE 81; RESP 16; TEMP 37; O2SAT 100
[2023-10-13 16:13] VITALS: BP 109/70; PULSE 79
--- NOTE | 2023-10-13 16:14 | PC.NURSE ---
Patient here for first feraheme infusion, she was monitored for 30 minutes post infusion. BP dropped only very slightly. On standing patient felt a little lightheaded which abated as she stood and walked. She was told to sit down if dizziness or lightheadeness returns and put her head between her legs and to go to ER especially if SOB, chest pain, swelling in face or neck. Patient voiced understanding and said, I am fine.
[2023-10-19 15:10] VITALS: BP 112/79; PULSE 78; RESP 16; TEMP 36.5; O2SAT 100
[2023-10-19] MEDS: ferumoxytoL 510 MG in SODIUM CHLORIDE 0.9% 100 ML 468 MG IV (15:27)
[2023-10-19 16:12] VITALS: BP 111/72; PULSE 81
--- NOTE | 2023-10-19 16:38 | PC.NURSE ---
Feraheme infusion was tolerated without any adverse reaction by this patient. No hypotension or dizziness on departure after 30min monitoring post infusion.
== END ==
PROVIDERS: PCP Family Medicine; Referring Provider Family Medicine; Visit Provider Family Medicine
DX: D64.9 Anemia, unspecified (principal)
CPT/HCPCS: 96365; Q0138

== ENCOUNTER → 2023-12-08 09:55 | Outpatient (CLI) | payer OTHER, MEDICAID, SELFPAY ==
[2023-12-08 10:42] LABS: Add Manual Diff / Slide Review NO; Basophils Absolute Auto 0 /uL (0-100); Basophils Percent Auto 0.3 % (0-2); Eosinophils Absolute Auto 100 /uL (0-450); Hematocrit 38.5 % (36-46); Hemoglobin 12.5 g/dL (12.0-16.0); Lymphocytes Absolute Auto 1300 /uL (1100-4500); Lymphocytes Percent Auto 16.5 % (25-40); Mean Corpuscular HGB Conc 32.6 % (30-36); Mean Corpuscular Hemoglobin 28.2 PG (26-34); Mean Corpuscular Volume 86.6 fL (80-100); Monocytes Absolute Auto 600 /uL (0-900); Monocytes Percent Auto 6.9 % (3-14); Neutrophils Absolute Auto 6100 /uL (1500-7000); Neutrophils Percent Auto 75.3 % (50-75); Platelet Count 226 X10^3/uL (150-400); Red Blood Cell Count 4.45 X10^6/uL (4.0-5.2); White Blood Cell Count 8.1 X10^3/uL (4.5-11.0)
[2023-12-08 11:06] LABS: Anisocytosis 2+
[2023-12-08 11:14] LABS: HEMOLYSIS < 15 (0-50); Iron 62 ug/dL (37-170)
[2023-12-08 11:24] LABS: Percent Iron Saturation 19 % (15-50); Total Iron Binding Capacity 322 ug/dL (265-497); Transferrin 264 mg/dL (206-381)
== END ==
LOC: LAB 09:56
PROVIDERS: PCP Family Medicine; Referring Provider Physician Assistant Medical; Visit Provider Physician Assistant Medical
DX: D64.9 Anemia, unspecified (principal); D50.9 Iron deficiency anemia, unspecified
CPT/HCPCS: 36415; 83540; 83550; 85025

== ENCOUNTER → 2023-12-30 14:34 | Outpatient (CLI) | payer OTHER, MEDICAID, SELFPAY ==
--- NOTE | 2023-12-30 14:36 | DI.US.S_ITS ---
PROCEDURE: US PELVIC COMPLETE INDICATIONS: AUB, r/o structural anomaly TECHNIQUE: Real-time scanning was performed of the pelvic organs, with image documentation. Additional endovaginal scanning was necessary due to incomplete visualization of the adnexal and endometrial structures by transabdominal scanning. COMPARISON: [facility], US, US PELVIC COMPLETE, 01/14/2020, 10:05. FINDINGS: Uterus: Uterus is anteverted and normal in size at 11.1 x 8.3 x 5.8 cm. The myometrium is heterogeneous. The endometrium measures 8 mm combined thickness. No fibroids Ovaries: The right ovary measures 2.9 x 1.7 x 2.0 cm, with a calculated ovarian volume of 5.2 cc. The left ovary measures 4.5 x 3.0 x 2.0 cm, with a calculated ovarian volume of 14.1 cc. The ovaries have a normal sonographic appearance. Less than 12 follicles can be seen in each ovary. There is a left ovarian cyst measuring 3.3 x 2.8 x 1.8 cm. It is simple. No adnexal masses are seen. Other: No pathologic free abdominal or pelvic fluid. IMPRESSION: 1. Physiologic left ovarian cyst. 2. Otherwise unremarkable study. We strive to produce accurate, complete, and clear reports of imaging services. To assist us in improving patient care, this report was composed using standard report templates and voice recognition software. Therefore, it may contain abnormal punctuation, insertions and/or omissions. Occasional wrong-word or sound-alike substitutions may occur. Though we review the report and make efforts to correct it, we do recommend that the report be read carefully in proper context to recognize any text inaccuracies. Dictated by: Brandon Harris M.D. on 12/30/2023 at 17:49 Approved by: Brandon Harris M.D. on 12/30/2023 at 17:51
== END ==
PROVIDERS: PCP Family Medicine; Referring Provider Obstetrics & Gynecology; Visit Provider Obstetrics & Gynecology
DX: N93.9 Abnormal uterine and vaginal bleeding, unspecified (principal); N83.292 Other ovarian cyst, left side
CPT/HCPCS: 76856

== ENCOUNTER → 2024-02-06 16:11 | Outpatient (CLI) | payer OTHER, MEDICAID, SELFPAY ==
--- NOTE | 2024-02-06 16:13 | DI.RAD.S_ITS ---
PROCEDURE: XR CERVICAL SPINE 4V OR 5V INDICATIONS: cervical radic, left C6 TECHNIQUE: 5 views of the cervical spine acquired. COMPARISON: None. FINDINGS: Bones: No fractures or dislocations to the C7-T1 level. Straightening of the normal cervical lordosis. There are multilevel degenerative changes of the cervical spine with facet and uncovertebral arthropathy, disc height loss with degenerative endplate changes and spurring. Oblique images demonstrate no significant bony foraminal stenoses. Soft tissues: No prevertebral soft tissue swelling. IMPRESSION: Mild multilevel degenerative changes of the cervical spine. Dictated by: Yosi Montoya M.D. on 02/06/2024 at 16:52 Approved by: Yosi Montoya M.D. on 02/06/2024 at 16:53
== END ==
PROVIDERS: PCP Family Medicine; Referring Provider Physical Medicine & Rehabilitation; Visit Provider Physical Medicine & Rehabilitation
DX: M47.22 Other spondylosis with radiculopathy, cervical region (principal)
CPT/HCPCS: 72050

== ENCOUNTER 2024-02-10 09:55 | Day surgery (SDC) | payer OTHER, MEDICAID, SELFPAY ==
[2024-02-09 13:47] VITALS: BMI 27.1
--- NOTE | 2024-02-10 | PATH_ITS ---
[facility] Accession Number: [id number] No. of containers..01 Tissue . 01 Material submitted: . endometrium - ENDOMETRIAL CURETTINGS . 01 Diagnosis: A. ENDOMETRIUM, CURETTAGE: Benign late proliferative/early secretory endometrium with evidence of shedding/breakdown (dyssynchronous). MRV 02/15/2024 1307 Local . 01 Electronically signed: . Vernell Gonzalez MD, Pathologist NPI- [id number] . 01 Gross description: . ENDOMETRIAL CURETTINGS: Received in formalin are minute fragments of mucoid and hemorrhagic material measuring 2.0 x 2.0 x 0.2 cm in aggregate. Submitted in toto in 1 cassette. /ELIZABETH 02/13/20248 Local . 01 Pathologist provided ICD-10: N93.9 . 01 CPT . 436364 Specimen Comment: A courtesy copy of this report has been sent to [phone] Performed at: [address] [facility] [address], [place], [place] [id number] MD Braden Griffin MD Phone: [phone]
[2024-02-10] MEDS: SCOPOLAMINE 1 PATCH TOP (10:25)
[2024-02-10] MEDS: LACTATED RINGERS 1,000 ML 21 ML IV (10:41)
[2024-02-10 10:43] VITALS: BP 102/71; PULSE 80; RESP 16; O2SAT 100; BMI 27.1
--- NOTE | 2024-02-10 12:02 | P.HPOB_ITS ---
History of Present Illness History of Present Illness Reason for admission: vaginal bleeding (Menorrhagia) Narrative: Diane Richards is a 43 year old female 3 para 3 who presents for a D&C hysteroscopy with NovaSure endometrial ablation. This is being done due to abnormal uterine bleeding. [facility] Medical History (Updated 02/03/24 @ 12:34 by Mohan Tavarez DO) Cervical radiculopathy at C6 Obesity, Class I, BMI 30-34.9 Acute bilateral low back pain with bilateral sciatica Sacral dysfunction Facet arthropathy, lumbar Acute lumbar radiculopathy Herniated nucleus pulposus, L5-S1, left SAHIL I (cervical intraepithelial neoplasia I) Family history of melanoma High risk HPV infection Depression (2010) Foot pain Ankle pain HPV (human papilloma virus) infection (2013) History of heavy periods Chlamydia (2013) Depression (11/15/16) Attention deficit disorder (09/27/13) Anxiety Surgical History (Updated 02/09/24 @ 13:53 by Candace Villafuerte RN) Hx of abdominoplasty History of lumbar discectomy Anesthesia History of gynecologic surgery (05/2001) Status post cholecystectomy (10/24/06) Family History Grandfather Cancer Diabetes mellitus Brain tumor Mother Age: 76 Diabetes mellitus Grandfather Stroke Diabetes mellitus Pneumonia Brother Liver failure Kidney failure Alcoholism Father Stroke Hyperlipidemia Melanoma CAD (coronary artery disease) Myocardial infarct Grandmother MVA (motor vehicle accident) Grandmother Alzheimer's disease Other Uterine cancer Social History Smoking Status: Never smoker alcohol intake: former Meds Home Medications and Allergies Home Medications Medication Instructions Recorded Confirmed Type semaglutide (weight loss) See Rx Instructions SUBCUT .COMPLEX 01/19/23 02/01/24 History ondansetron 4 mg disintegrating 4 mg PO Q8H PRN nausea and 04/01/23 02/01/24 Rx tablet vomiting #36 tabs bupropion HCl 300 mg 24 hr tablet, 300 mg PO QAM #90 tabs 12/14/23 02/01/24 Rx extended release ondansetron 8 mg disintegrating 8 mg PO 3XD 12/23/23 02/01/24 History tablet methylphenidate HCl 54 mg 54 mg PO QAM #30 tabs 01/23/24 02/01/24 Rx tablet,extended release 24 hr bupropion HCl 150 mg 24 hr tablet, 300 mg PO DAILY 02/10/24 History extended release Allergies Allergy/AdvReac Type Severity Reaction Status Date / Time No Known Drug Allergies Allergy Verified 02/10/24 10:21 Exam Vital Signs (past 8 hours): - 02/10/24 10:43 Pulse Rate 80 Respiratory Rate 16 Blood Pressure 102/71 Pulse Oximetry 100 Oxygen Delivery Method Room Air Oxygen Delivery Method Room Air Narrative Exam Narrative: HEENT: No thyromegaly, no anterior cervical or supraclavicular lymphadenopathy. Lungs:Clear to auscultation bilaterally, no wheezes. Cardiovascular: Regular rate and rhythm, no murmurs, rubs, or gallops. Abdomen: Well-healed laparoscopy scars. No hepatosplenomegaly. No masses palpable. External genitalia: Normal Vagina: Normal Cervix: Normal Bimanual exam: 8 Week size anteverted uterus. Mobile. No adnexal masses or tenderness Extremities: No edema Rectal: No masses. Assessment & Plan Assessment & Plan narrative: Assessment: 43-year-old 3 para 3 with abnormal uterine bleeding Plan: D&C hysteroscopy with NovaSure endometrial ablation The risks, benefits, and alternatives to the procedure were explained to the patient. The risks including bleeding, infection, and uterine perforation. She understands these risks and agrees to proceed. A full par Q was held and consent form was signed. Time Spent With Patient Time with patient: less than 30 minutes
--- NOTE | 2024-02-10 12:04 | PM.PREOP ---
Pre-operative Note Interval Note History & Physical reviewed/Exam performed by Physician: Yes Changes to H&P: No H&P completed within 30 days and has changed as indicated here:: 02/10/24
[2024-02-10] MEDS: ACETAMINOPHEN IV 1,000 MG/100 ML VIAL 400 MG IV (12:45)
--- NOTE | 2024-02-10 12:57 | PM.GYNOP.1 ---
Operative Date/Time/Diagnoses Date of procedure: 02/10/24 Time of procedure: 12:57 Pre-op diagnosis: Menorrrhagia Post-op diagnosis: same Procedure & Clinicians Procedure: Procedures Operation Date: 02/10/24 11:15 Actual Procedure Side Surgeon p Hysteroscopy D&C, novasure endometrial ablation Lynda Skelton MD Indications: 43 year old with abnormal uterine bleeding Surgeon: Lynda Skelton Anesthesia Type: General (LMA) Operative Notes Findings: 8 wk size anteverted uterus Both Fallopian tube ostia observed Length of uterus: 5.5 cm Width of uterus: 3.5 cm Power: 106 Bundy Time: 54 sec Closure Type: not applicable Specimen(s): endometrial curettings Estimated blood loss (mL): 10 Blood products transfused: none Procedure in detail: After informed consent was obtained, was taken to the operative where she was placed in the dorsal supine position. After adequate LMA general anesthesia was achieved, she was placed in the dorsal lithotomy position, and prepped and draped in the usual sterile fashion. A time-out was performed. A bivalve speculum was placed into the vagina and the anterior lip of the cervix was grasped with a single-tooth tenaculum. The cervical os was sequentially dilated until the MyoSure hysteroscope could pass easily into the endometrial cavity. Initial inspection of the hysteroscope revealed both fallopian tube ostia. There were no fibroids or polyps appreciated. The MyoSure Lite pass easily into the endometrial cavity and endometrial curettings were obtained. The hysteroscope was removed from the uterus. The uterus was sounded and the internal os to the fundus and measured 5.5 cm. This was set on the NovaSure catheter and the generator. The NovaSure catheter passed easily into the endometrial cavity was opened. The width of the uterus was 3.5 cm. This was also set on the generator. The cervix was capped, the cavity assessment was performed and passed. Power indicated 106 Bundy. The cycle was initiated and lasted 54 seconds. Catheter was closed and was removed from the uterus. The single-tooth tenaculum was removed from the anterior lip of the cervix. The bivalve speculum was removed from the vagina. Sponge, lap, and instrument counts were correct x2. The patient tolerated the procedure well, was taken to PACU in stable condition. Complications: none Post-operative Condition: stable Disposition: PACU Plan for aftercare: Home after recovery
[2024-02-10 13:04] VITALS: BP 116/43; PULSE 83; RESP 11; TEMP 36.6; O2SAT 100
[2024-02-10 13:10] VITALS: BP 114/70; PULSE 87; RESP 10; O2SAT 100
--- NOTE | 2024-02-10 13:13 | SUR.OPER ---
Lithotomy on padded OR bed, head on pillow, arms secured on padded arm boards at <90 degrees abduction. Legs secured in padded yellow fins stirrups.
[2024-02-10 13:15] VITALS: BP 115/73; PULSE 77; RESP 15; O2SAT 100
[2024-02-10 13:20] VITALS: BP 119/66; PULSE 97; RESP 18; O2SAT 100
[2024-02-10 13:27] VITALS: BP 113/45; PULSE 80; RESP 18; TEMP 36.7; O2SAT 100
== END 2024-02-10 13:42 | disposition home or self-care (01) ==
PROVIDERS: PCP Family Medicine; Referring Provider Obstetrics & Gynecology; Visit Provider Obstetrics & Gynecology
PROC: 0U5B8ZZ Destruction of Endometrium, Via Natural or Artificial Opening Endoscopic (ICD-10-PCS; CPT 58563; principal; 2024-02-10 11:15)
DX: N92.0 Excessive and frequent menstruation with regular cycle (principal)
CPT/HCPCS: 58563; 81025; J0136; J1100; J1885; J2250; J2405; J2704; J3010

== ENCOUNTER → 2024-02-21 15:56 | Outpatient (CLI) | payer OTHER, MEDICAID, SELFPAY ==
--- NOTE | 2024-02-21 15:58 | DI.MRI.S_ITS ---
PROCEDURE: MR CERVICAL SPINE WO CON INDICATIONS: Left C6 radiculopathy TECHNIQUE: Noncontrast sagittal T1 spin echo and T2 fast spin echo, sagittal STIR, foraminal oblique sagittal T2 fast spin echo, and axial gradient echo or T2 fast spin echo through the cervical spine. COMPARISON: None. FINDINGS: Image quality: Excellent. Alignment and Curvature: There is trace retrolisthesis of C5 on C6, C6 on C7. Bone Marrow: Marrow demonstrates normal overall signal. Spinal Cord: Visualized spinal cord has normal size and signal. No cerebellar tonsillar herniation. Paraspinous Soft Tissues: No paravertebral masses. Prevertebral soft tissues are normal in thickness. Discs: [id number] desiccation is present C5-6, C6-7. C2-C3: No disc bulge, spinal stenosis or foraminal narrowing. C3-C4: No disc bulge, spinal stenosis or foraminal narrowing. C4-C5: Minimal disc bulge without spinal stenosis. No foraminal narrowing. C5-C6: Mild disc bulge with mild spinal stenosis. Moderate to severe left and [id number] right foraminal narrowing with uncovertebral arthropathy. C6-C7: Mild disc bulge with mild spinal stenosis. Moderate bilateral foraminal narrowing, left greater than right with uncovertebral hypertrophy. C7-T1: No disc bulge, spinal stenosis or foraminal narrowing. IMPRESSION: Degenerative changes most severe at C5-6 and C6-7 demonstrating disc bulges with overall moderate bilateral foraminal narrowing. Dictated by: Suma Gooden M.D. on 02/22/2024 at 16:10 Approved by: Suma Gooden M.D. on 02/22/2024 at 16:12
== END ==
PROVIDERS: PCP Family Medicine; Referring Provider Physical Medicine & Rehabilitation; Visit Provider Physical Medicine & Rehabilitation
DX: M47.12 Other spondylosis with myelopathy, cervical region (principal); M50.122 Cervical disc disorder at C5-C6 level with radiculopathy; M48.02 Spinal stenosis, cervical region
CPT/HCPCS: 72141

== ENCOUNTER 2024-03-27 15:35 | Outpatient (CLI) | payer OTHER, MEDICAID, SELFPAY ==
[2024-03-27] VITALS (8 sets, daily range): BP systolic 108–124; BP diastolic 56–75; PULSE 78–97; RESP 12–17; TEMP 36.4; O2SAT 98–100
--- NOTE | 2024-03-27 16:00 | DI.RAD.S_ITS ---
PROCEDURE: PAIN C/T INTERLAMINAR INJECT INDICATIONS: C6-7 translaminar MARÍA COMPARISON: None. FINDINGS: Fluoroscopic spot filming was performed to verify placement of spinal needles at the C6-7 level(s), as labeled on the films. Appropriate location(s) of the needle tip(s) was confirmed by injection of iodinated contrast. IMPRESSION: Fluoro guidance was provided intraoperatively for C6-7 translaminar a MARÍA performed by ordering physician. Dictated by: Michael Martin M.D. on 03/28/2024 at 15:45 Approved by: Michael Martin M.D. on 03/28/2024 at 15:46
[2024-03-27] MEDS: MIDAZOLAM 2 MG/2 ML VIAL IV (16:10)
[2024-03-27] MEDS: iopamidoL 15 ML VIAL 3 ML INJ (16:14)
[2024-03-27] MEDS: DEXAMETHASONE 10 MG/ML VIAL 30 MG INJ (16:14)
[2024-03-27] MEDS: BUPIVACAINE 0.25% (PF) VIAL 2 ML INJ (16:15)
--- NOTE | 2024-03-27 16:33 | P.PCN_ITS ---
Date/Time/Diagnoses Date of procedure: 03/27/24 Time of procedure: 16:33 Pre-procedure diagnosis: 1. CERVICAL STENOSIS, 2. CERVICAL HNP WITH UPPER EXTREMITY RADICULAR FEATURES Post-procedure diagnosis: same Procedure Notes Procedure: 1. FLUORSCOPICALLY GUIDED CONTRAST CONTROLLED INTERLAMINAR EPIDURAL STEROID INJECTION - C6/7 TL MARÍA Indications: Diane is referred by Dr. Burton for treatment of Cervical HNP with Upper Extremity Paresthesias. Physician: Mohan Tavarez Total Fluoroscopy time (seconds): 27 Total sedation minutes: 15 Complications: none Procedure in detail & Post-procedure care: FINDINGS Cervical Stenosis due to disc deterioration and nerve root irritation and nerve root irritation DESCRIPTION OF PROCEDURE Fluoroscopically guided, contrast-controlled C6/7 translaminar epidural steroid injection with conscious sedation. Following review of allergy and review of potential side effects and complications, including, but not necessarily limited to, infection, allergic reaction, local tissue breakdown, temporary as well as permanent nerve injury, stroke, paralysis, and possible , the patient indicated that patient understood and agreed to proceed. An informed consent document was signed by the patient, witnessed by a nurse, and placed in the patient's chart. Additionally, other treatment options including modalities, medications, and physical therapy were reviewed with the patient. After review of previous anaesthesic history and IV conscious sedation the patient was deemed safe to proceed with today?s procedure with IV conscious sedation as ASA class II designation. Safety time-out was performed to confirm patient ID, procedure to be performed and site of procedure. IV sedation was accomplished with a combination of 2mg of Versed administered by the RN after DO order, titrated to patient comfort during the course of the procedure while the patient remained responsive to all verbal commands. In the prone position, following sterile prep and drape of the cervical region, the C6/7 translaminar space was identified fluoroscopically. The skin was anesthetized via a 25-gauge 1.5-inch needle with 1% lidocaine solution. At this point, a 25-gauge, 2.5-inch short bevel spinal needle was atraumatically introduced and advanced under fluoroscopic guidance into epidural space at the C6/7 translaminar space. Depth was confirmed on lateral view. Radiological data, including multiple fluoroscopic views of the cervical spine, reveal a spinal needle at the C6/7 translaminar space. Lateral views then show placement of the needle in the epidural space. Subsequent views show contrast material flowing superiorly and inferiorly in the epidural space. DSA fluoroscopy with live contrast injection, once again, confirmed no vascular or intrathecal uptake. At this point, using loss of resistance technique with saline and air, the epidural space was entered. Following negative aspiration, injection of approximately 1.5 cc of Isovue-200 with live fluoroscopy in the AP view confirmed epidural flow in the epidural space without vascular or intrathecal uptake observed. Subsequently, a test dose of 1 cc of 1% lidocaine solution was injected and patient was observed for two minutes without signs or symptoms of complications, including abdominal pain, shortness of breath, bilateral upper or lower extremity weakness, nausea and vomiting, prior to steroid injection. At this point, 2cc or 20mg of dexamethasone was then injected without incident. The patient tolerated the procedure well without signs or symptoms of compl ications prior to being transferred to the recovery area for further monitoring, The patient was then transferred to the recovery area where they were observed for an appropriate period of time after the injection. The patient reported a VAS score of 6 prior to the procedure and a post-procedure VAS of 0. POST OP INSTRUCTIONS The patient was provided a Pain Log to continue to record their response to the target-specific procedure prior to follow-up visit with the referring provider. Additionally, specific post-injection care instructions and a contact number to our office were provided if concerns arise regarding possible complications associated with the procedure are suspected.
== END 2024-03-27 16:44 | disposition home or self-care (01) ==
PROVIDERS: PCP Family Medicine; Referring Provider Physical Medicine & Rehabilitation; Visit Provider Physical Medicine & Rehabilitation
DX: M48.02 Spinal stenosis, cervical region (principal); M50.123 Cervical disc disorder at C6-C7 level with radiculopathy
CPT/HCPCS: 62321; 99152; J1100; J2250; J3490

== ENCOUNTER → 2025-05-07 20:58 | Outpatient (ROUT) | payer OTHER, SELFPAY ==
[2025-05-07 22:29] LABS: Urine N gonorrhoeae NOT DETECTED
[2025-05-07 22:36] LABS: Urine Chlamydia NOT DETECTED
== END ==
LOC: LAB 20:58
PROVIDERS: PCP Family Medicine; Visit Provider Family Medicine
DX: Z91.89 Other specified personal risk factors, not elsewhere classified (principal)
CPT/HCPCS: 87491; 87591